=== PATIENT | male | born 1965 | race Native Hawaiian/Other Pacific Islander ===

== ENCOUNTER 2017-12-17 19:10 | Emergency (ER) | payer BC, OTHER ==
[2017-12-17 19:53] VITALS: BP 146/89; PULSE 67; RESP 18; TEMP 97.8; O2SAT 98
[2017-12-17] MEDS ORDERED: Tdap Vaccine 0.5 ml Vial (10-64 yrs) IM ONE ×2 (20:17→21:14)
--- NOTE | 2017-12-17 20:26 | ED PDOC ---
HPI: General Adult Time Seen by Provider: 12/17/17 20:02 Chief Complaint (Nursing): Abnormal Skin Integrity Chief Complaint (Provider): Abnormal Skin Integrity History Per: Patient History/Exam Limitations: no limitations Onset/Duration Of Symptoms: Days Current Symptoms Are (Timing): Still Present Additional Complaint(s): Santi Ellis is a 52 year old male with a past medical history of hypertension and hypercholesterolemia who is presenting to the ED requesting a tetanus vaccine. 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 He reports that he was seen by company nurse and the cut was cleaned. Patient reports that he was prescribed antibiotics which he has been taking but he cant recall his last tetanus shot. Patient has no other complaints, no limitation of motion and no loss of sensation. PMD: Dr. Perez Past Medical History Reviewed: Historical Data, Nursing Documentation, Vital Signs Vital Signs: Last Vital Signs Temp 97.8 F 12/17/17 19:49 Pulse 67 12/17/17 19:49 Resp 18 12/17/17 19:49 BP 146/89 12/17/17 19:49 Pulse Ox 98 12/17/17 19:49 - Medical History PMH: HTN, Hypercholesterolemia - Surgical History Other surgeries: Thyroid removed - Family History Family History: States: Unknown Family Hx - Home Medications Home Medications: Ambulatory Orders Medication Instructions Recorded RX: Bacitracin Ointment 1 applic TOP BID #1 tube 12/17/17 [Bacitracin] - Allergies Allergies/Adverse Reactions: Allergies Allergy/AdvReac Type Severity Reaction Status Date / Time No Known Allergies Allergy Verified 12/17/17 19:53 Review of Systems ROS Statement: Except As Marked, All Systems Reviewed And Found Negative Musculoskeletal: Positive for: Other (laceration to thumb, requesting tetanus) Neurological: Negative for: Other (loss of sensation) Physical Exam - Reviewed Nursing Documentation Reviewed: Yes Vital Signs Reviewed: Yes - Physical Exam Comments: GENERAL APPEARANCE: Patient is awake, alert, oriented x 3, in no acute distress. Resting comfortably. SKIN: Warm, dry; (-) cyanosis. NECK: Supple, FROM CHEST AND RESPIRATORY: (-) rales, (-) rhonchi, (-) wheezes; breath sounds equal bilaterally. Respirations even and nonlabored. HEART AND CARDIOVASCULAR: (-) irregularity EXTREMITIES: Distal ulnar aspect of left thumb: (+) 1 cm superficial, diagonal laceration, no active bleeding. (-) erythema, (-) warmth or discharge (-) nail involvement. Full ROM of all digits. (+) sensation and cap refill intact. Reminder of hand and wrist non-tender(-) deformity, (-) edema, (+) distal pulses. NEURO AND PSYCH: Mental status as above; (-) focal findings. Gait: steady. Speech: clear. (-) facial asymmetry - ECG O2 Sat by Pulse Oximetry: 98 (RA) Pulse Ox Interpretation: Normal Medical Decision Making Medical Decision Making: Time: 20:18 Impression: Wound Check, Tetanus Vaccine Plan: --Adacel 0.5 ml IM 2120 On re-evaluation, patient offers no other symptoms. On exam, patient remains AAOx3, in no acute distress. Lungs clear to auscultation, cardiac RRR, repeat neuro exam shows no focal findings. Vitals stable. Lab/Diagnostic results d/w the patient in great detail. Diagnosis of tetanus vaccination, wound check d/w the patient. Based on history, exam and diagnostic results, plan will be for outpatient follow up. Patient instructed to follow-up with pmd / referral provided / the clinic in 1- 2 days without fail. Advised to take medication as prescribed. Return to the emergency room at any time for any new or worsening symptoms. Patient states he fully agrees with and understands discharge instructions. States that he agrees with the plan and disposition. Verbalized and repeated discharge instructions and plan. I have given the patient opportunity to ask any additional questions. Scribe Attestation: Documented by Sarika Liu, acting as a scribe for Yajaira Mesa PA-C. Provider Scribe Attestation: All medical record entries made by the Scribe were at my direction and pers onally dictated by me. I have reviewed the chart and agree that the record accurately reflects my personal performance of the history, physical exam, medical decision making, and the department course for this patient. I have also personally directed, reviewed, and agree with the discharge instructions and disposition. Disposition - Clinical Impression Clinical Impression: Tetanus-diphtheria (Td) vaccination, Finger laceration - Patient ED Disposition Is Patient to be Admitted: No Counseled Patient/Family Regarding: Studies Performed, Diagnosis, Need For Followup, Rx Given - Disposition Referrals: Rolando Perez MD [Staff Provider] - Disposition: Routine/Home Disposition Time: 21:20 Condition: STABLE Additional Instructions: The emergency medical care you received today was directed at your acute symptoms. If you were prescribed any medication, please fill it and take as directed. It may take several days for your symptoms to resolve. Return to the Emergency Department if your symptoms worsen, do not improve, or if you have any other problems. Please contact your doctor in 2 days for re-evaluation and follow up / or call one of the physicians/clinics you have been referred to that are listed on the Patient Visit Information form that is included in your discharge packet. Bring any paperwork you were given at discharge with you along with any medications you are taking to your follow up visit. Our treatment cannot replace ongoing medical care by a primary care provider (PCP) outside of the emergency dep artment. Prescriptions: RX: Bacitracin Ointment [Bacitracin] 1 applic TOP BID #1 tube Instructions: Wound Care, Tdap Vaccine, Common Finger Injuries Forms: [facility] (Portuguese) Print Language: BRUNEIAN - POA Present On Arrival: None
== END 2017-12-17 21:24 | disposition home or self-care (01) ==
LOC: H.ER 19:10
DX: S61.012A Laceration without foreign body of left thumb without damage to nail, initial encounter (principal); W26.8XXA Contact with other sharp object(s), not elsewhere classified, initial encounter; Y99.0 Civilian activity done for income or pay; E78.00 Pure hypercholesterolemia, unspecified; I10 Essential (primary) hypertension